=== PATIENT | female | born 1980 | race Hispanic/Latino ===

== ENCOUNTER 2017-07-15 09:30 | Emergency (ER) | payer OTHER ==
[2017-07-15 09:46] VITALS: TEMP 97.7; O2SAT 100
[2017-07-15] MEDS: Albuterol-Ipratrop 3 mg / 0.5 (3 ml) UD IH SCH ×3 (10:00→11:13)
--- NOTE | 2017-07-15 10:02 | ED PDOC ---
Arrival/HPI - General Chief Complaint: Shortness Of Breath Time Seen by Provider: 07/15/17 09:51 Historian: Patient - History of Present Illness Narrative History of Present Illness (Text): 07/15/17 09:59 37 y/o female, pmh including bronchitis, nkda, +smoker, c/o coughing with wheezing x 4-5 days with fever started about 2 days ago. Pt. stated that she has nasal congestion with yellow/green productive coughing, fever started 2 days ago with unknown tmax except "low grade," no antipyretic taken prior to arrival, eating and drinking well, energy level remains the same, no night sweat , no rash, no numbness or tingling, no recent traveling, no palpitation, no other medical or psychological complaints. Pt. received 1st duoneb treatment prior to my arrival which the Peak flow after the treatment is 440. Past Medical History - Provider Review Nursing Documentation Reviewed: Yes - Infectious Disease Hx of Infectious Diseases: None - Endocrine/Metabolic Hx Diabetes Mellitus Type 2: Yes - Psychiatric Hx Substance Use: No Family/Social History - Physician Review Nursing Documentation Reviewed: Yes Family/Social History: Unknown Family HX Smoking Status: Heavy Smoker > 10 Cigarettes Daily Hx Alcohol Use: No Hx Substance Use: No Allergies/Home Meds Allergies/Adverse Reactions: Allergies Mag Mohinder Allergy (Uncoded 07/15/17 09:48) ANAPHYLAXIS Review of Systems - Review of Systems Constitutional: Fevers. absent: Fatigue Eyes: absent: Vision Changes ENT: Rhinorrhea. absent: Hearing Changes Respiratory: Cough, Sputum, Wheezing. absent: SOB Cardiovascular: absent: Chest Pain Gastrointestinal: absent: Abdominal Pain, Diarrhea, Nausea, Vomiting Skin: absent: Rash, Pruritis Neurological: absent: Headache, Dizziness Psychiatric: absent: Anxiety, Depression, Suicidal Ideation Physical Exam Vital Signs Reviewed: Yes Vital Signs Temp Pulse Resp BP Pulse Ox 07/15/17 10:07 19 100 07/15/17 09:37 97.7 F 63 18 115/68 100 Temperature: Afebrile Blood Pressure: Normal Pulse: Regular Respiratory Rate: Normal Appearance: Positive for: Well-Appearing, Non-Toxic, Comfortable Pain Distress: None Mental Status: Positive for: Alert and Oriented X 3 - Systems Exam Head: Present: Atraumatic, Normocephalic, Other (no sinus tenderness) Pupils: Present: PERRL Extroacular Muscles: Present: EOMI Conjunctiva: Present: Normal Ears: Present: NORMAL TM, Normal Canal. No: Erythema Mouth: Present: Moist Mucous Membranes Nose (External): Present: Atraumatic. No: Abrasion, Contusion, Laceration Nose (Internal): Present: Normal Inspection, No Active Bleeding, Rhinorrhea. No : Septal Deviation, Septal Hematoma, Epistaxis Neck: Present: Normal Range of Motion Respiratory/Chest: Present: Rhonchi (RLL). No: Respiratory Distress, Accessory Muscle Use, Wheezes, Decreased Breath Sounds, Rales, Retracting, Tachypneic Cardiovascular: Present: Regular Rate and Rhythm, Normal S1, S2. No: Murmurs Abdomen: No: Tenderness, Distention, Peritoneal Signs Back: Present: Normal Inspection Upper Extremity: Present: Normal Inspection. No: Cyanosis, Edema Lower Extremity: Present: Normal Inspection. No: Edema Neurological: Present: GCS=15, CN II-XII Intact, Speech Normal Skin: Present: Warm, Dry, Normal Color. No: Rashes Psychiatric: Present: Alert, Oriented x 3, Normal Insight, Normal Concentration Medical Decision Making ED Course and Treatment: 07/15/17 10:03 -PEAK flow after 1st treatment is 440, duoneb prn and prednisone 60mg -Chest xray -Observe and reassess 07/15/17 11:20 -Urine hcg is negative -Chest xray show no active disease -PF now is 480 with poor technique, wheezing resolved, pt. request albuterol solution as she is out of it at home for PRN. Pt. has zpack at home which she just started yesterday. -Discharge home with prednisone, albuterol MDI and solution, continue zpack at home, tessalon, claritin, follow up with your own pmd and pulmonary doctor, stop smoking, return to the ER for any new or worsening signs or symptoms. - RAD Interpretation Radiology Orders: 07/15/17 09:56 CHEST TWO VIEWS (PA/LAT) [RAD] Stat HISTORY: cough/fever COMPARISON: No prior. TECHNIQUE: Chest PA and lateral FINDINGS: LUNGS: No active pulmonary disease. PLEURA: No significant pleural effusion identified. No pneumothorax apparent. CARDIOVASCULAR: Normal. OSSEOUS STRUCTURES: No significant abnormalities. VISUALIZED UPPER ABDOMEN: Normal. OTHER FINDINGS: None. IMPRESSION: No active disease Engine Repair Supervisor: Radiologist - Medication Orders Current Medication Orders: Discontinued Medications Albuterol/Ipratropium (Duoneb 3 Mg/0.5 Mg (3 Ml) Ud) 3 ml IH Q15M ON LICENSE OF [facility] Stop: 07/15/17 10:31 Last Admin: 07/15/17 11:13 Dose: 3 ml Prednisone (Prednisone Tab) 60 mg PO STAT ONE Stop: 07/15/17 09:57 Last Admin: 07/15/17 10:11 Dose: 60 mg - PA / COMMUNITY ENGAGEMENT SPECIALIST / Resident Statement MD/DO has reviewed & agrees with the documentation as recorded. Disposition/Present on Arrival - Present on Arrival Any Indicators Present on Arrival: No History of DVT/PE: No History of Uncontrolled Diabetes: No Urinary Catheter: No History of Decub. Ulcer: No History Surgical Site Infection Following: None - Disposition Have Diagnosis and Disposition been Completed?: Yes Diagnosis: Bronchitis Disposition: HOME/ ROUTINE Disposition Time: 11:22 Patient Plan: Discharge Condition: IMPROVED Discharge Instructions (ExitCare): Acute Bronchitis Additional Instructions: -Discharge home with prednisone, albuterol MDI and solution, continue zpack at home, tessalon, claritin, follow up with your own pmd and pulmonary doctor, stop smoking, return to the ER for any new or worsening signs or symptoms. Prescriptions: Albuterol HFA [Ventolin HFA 90 mcg/actuation (8 g)] 2 puff IH [id number] PRN #1 in PRN Reason: Other Albuterol 0.083% [Albuterol 0.083% Inhal Evelyn (2.5 mg/3 ml) UD] 3 ml IH QID PRN # 50 neb PRN Reason: Other Benzonatate [Tessalon Perles] 200 mg PO TID PRN #30 sgl PRN Reason: Other Loratadine [Claritin] 10 mg PO DAILY PRN #14 tab PRN Reason: Other Prednisone 50 mg PO DAILY #4 tablet Referrals: Zeke Eason MD [Staff Provider] - Follow up with primary [facility] [place] [Outside] - Follow up with primary Forms: WORK NOTE
[2017-07-15 10:17] VITALS: RESP 19
--- NOTE | 2017-07-15 11:17 | RAD ---
HISTORY: cough/fever COMPARISON: No prior. TECHNIQUE: Chest PA and lateral FINDINGS: LUNGS: No active pulmonary disease. PLEURA: No significant pleural effusion identified. No pneumothorax apparent. CARDIOVASCULAR: Normal. OSSEOUS STRUCTURES: No significant abnormalities. VISUALIZED UPPER ABDOMEN: Normal. OTHER FINDINGS: None. IMPRESSION: No active disease.
[2017-07-15 11:47] VITALS: BP 112/60; PULSE 92
== END 2017-07-15 11:47 | disposition home or self-care (01) ==
LOC: ED 09:30
DX: J20.9 Acute bronchitis, unspecified (principal); F17.210 Nicotine dependence, cigarettes, uncomplicated